=== PATIENT | female | born 1990 | race Caucasian/White ===

== ENCOUNTER 2016-10-03 11:33 | Emergency (ER) | payer MEDICAID ==
[2016-10-03 11:40] VITALS: TEMP 98.1
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
[2016-10-03] MEDS ORDERED: ACETAMINOPHEN 325 MG TAB PO ONE (13:15)
[2016-10-03 13:36] VITALS: BP 108/60; PULSE 62; RESP 16; O2SAT 97
== END 2016-10-03 13:34 | disposition home or self-care (01) ==
DX: S06.0X0A Concussion without loss of consciousness, initial encounter (principal); Z87.891 Personal history of nicotine dependence; W22.8XXA Striking against or struck by other objects, initial encounter; Y92.69 Other specified industrial and construction area as the place of occurrence of the external cause; Y99.0 Civilian activity done for income or pay

== ENCOUNTER 2017-06-11 09:32 | Emergency (ER) | payer MEDICAID ==
[2017-06-11] MEDS ORDERED: OXYCODONE/APAP 5/325 TAB PO ONE (10:28)
--- NOTE | 2017-06-11 10:49 | EDPHY ---
General Time Seen by Provider: 06/11/17 10:27 Narrative: CHIEF COMPLAINT: Right labial cyst HISTORY OF PRESENT ILLNESS: Patient complains of cyst on her right labia. It is been present for several years. It waxes and wanes. Previously diagnosed with a Bartholin gland cyst that was never incised or drained. She has had increasing pain over the past few days with increasing size as well. No drainage from the vagina. No drainage from the cyst. No pelvic or abdominal pain. No fever. No intercourse recently. She has recently moved back to [place] and has no provider at this time. No other associated complaints or modifying factors. REVIEW OF SYSTEMS: Ten systems reviewed and are negative unless otherwise noted in the HPI PCP: None currently SPECIALISTS: None currently PAST MEDICAL HISTORY: Bartholin gland cyst. PAST SURGICAL HISTORY: Left upper extremity ORIF SOCIAL HISTORY: Never smoker. Occasional alcohol use. Occasional marijuana use. 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 No wheezing, rhonchi or crackles Cardiovascular: Regular rate and rhythm. No murmur Gastrointestinal: Abdomen is soft and nontender. No tympany rigidity. No suprapubic tenderness. 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 There is a small cyst on the right labia majora at the 7 o'clock position. Do not appreciate a Bartholin gland cyst by palpation or bimanual examination. No drainage. No surrounding cellulitis or fluctuance. No abnormality of the labia minora. Neurological: A&O, nonfocal, normal gait Skin: Warm and dry, no rash. Cystic changes as above. Extremities: Nontender, no pedal edema Psychiatric: Mood and affect normal DIFFERENTIAL DIAGNOSES: Including but not limited to skin tab, inclusion cyst, sebaceous cyst, modifying gland cyst, cutaneous cyst MDM: 10:25 a.m. Cyst on the right labia majora that is external only. I do not appreciate a palpable Bartholin gland cyst below the surface of the skin. This is a cyst the patient like to have removed, thus I will anesthetize and drain this. There are no vesicular lesions. No abnormalities on the vulva otherwise. Vital signs are within normal limits and she is in no acute distress. 10:50 a.m. Small cutaneous cyst on the right labia majora at the 7:00 position. I do not appreciate a large Bartholin gland cyst. The remainder of the vulvar exam is unremarkable. There is no palpable ortho gland cyst by bimanual exam. I have drained the cutaneous cyst and obtain viral and wound cultures. Low clinical suspicion for infection. We discussed refraining from shaving her genitalia. We discussed outpatient follow-up. She will be discharged home on short course of antibiotic prophylaxis. I will refer her to the on-call restaurant worker for evaluation and further care if needed. I have also provided the on-call primary care physician so she may established. We discussed ED precautions. We discussed pain control. She is comfortable this plan and discharged home stable condition PROCEDURE: Incision and Drainage Consent: Verbal Location: Right labia majora Length: 1 cm Complexity: Simple Terry Cloth Cutter Hand: Female RNAnn Anesthesia: Local. 1% lidocaine with epinephrine. 3 mL Procedure description: After time-out verbal consent, the area was prepped, sterile fashion. Anesthesia as above. Cyst was drained using a 11. Blade with sterile procedure. Viral and wound cultures obtained. I was able to irrigate the wound and palpate further. I did not appreciate any Bartholin gland cyst externally or during bimanual examination. Expressed: 5 mL serosanguineous Wound care: Daily as discussed Follow-up: Gynecology as discussed. SUPERVISION: This patient was independently evaluated without direct involvement of or examination by the attending physician. - History Smoking Status: Former smoker - Objective Vital Signs: Initial Vital Signs Temperature (C) 97.2 F 06/11/17 09:44 Heart Rate 89 06/11/17 09:44 Respiratory Rate 16 06/11/17 09:44 Blood Pressure 103/70 06/11/17 09:44 O2 Sat (%) 98 06/11/17 09:44 O2 Delivery Mode Room Air Allergies/Adverse Reactions: prochlorperazine [From Compazine] Allergy (Verified 10/03/16 11:36) prochlorperazine edisylate [From Compazine] Allergy (Verified 10/03/16 11:36) prochlorperazine maleate [From Compazine] Allergy (Verified 10/03/16 11:36) Home Medications: Medication Instructions Recorded Fluconazole [Diflucan (*)] 150 mg PO ONCE #2 tab 06/11/17 Sulfamethox/Tmp 800/160 mg 1 tab PO BID 7 Days tab 06/11/17 [Bactrim Ds] oxyCODONE HCL/ACETAMINOPHEN 1 each PO Q4-6PRN PRN #7 tablet 06/11/17 [Percocet 5-325 mg Tablet] Laboratory Results: 06/11/17 10:45 HSV Source Description Pending HSV I DNA PCR Pending HSV II DNA PCR Pending Microbiology Results: MICROBIOLOGY 06/11/17 10:45 Vulva - Swab Gram Stain - Final Medications Given: Discontinued Medications Oxycodone/Acetaminophen (Percocet 5/325) 1 tab PO EDNOW ONE Stop: 06/11/17 10:29 Last Admin: 06/11/17 10:41 Dose: 1 tab Departure - Departure Disposition: Home, Routine, Self-Care Clinical Impression: Vulvar cyst, Vulvodynia, unspecified Condition: Good Instructions: Dermal Cyst Excision (DC), Bartholin Cyst (ED), Incision and Drainage (ED) Additional Instructions: 1. Pain medication as prescribed as needed 2. Antibiotics as prescribed as needed 3. Contact the on-call restaurant worker as provided to establish an for repeat evaluation. 4. Contact the on-call primary care physician to establish 5. ED precautions as discussed Referrals: Huang Hewitt MD [Medical Doctor] - As per Instructions Yamilet Chavarria MD [Medical Doctor] - As per Instructions Prescriptions: Fluconazole [Diflucan (*)] 150 mg PO ONCE #2 tab oxyCODONE HCL/ACETAMINOPHEN [Percocet 5-325 mg Tablet] 1 each PO Q4-6PRN PRN #7 tablet PRN Reason: Pain, Breakthrough Sulfamethox/Tmp 800/160 mg [Bactrim Ds] 1 tab PO BID 7 Days tab
[2017-06-11 11:08] VITALS: BP 118/78
== END 2017-06-11 11:00 | disposition home or self-care (01) ==
PROC: 0W9N3ZZ Drainage of Female Perineum, Percutaneous Approach (ICD-10-PCS; principal; 2017-06-11)
DX: N90.7 Vulvar cyst (principal); N94.819 Vulvodynia, unspecified; Z87.891 Personal history of nicotine dependence
CPT/HCPCS: 87529-90